=== PATIENT | female | born 1955 | race Caucasian/White ===

== ENCOUNTER → 2020-07-30 14:29 | Outpatient (CLI) | payer BC, SELFPAY ==
[2020-07-30 16:16] LABS: Add Manual Diff / Slide Review NO; Basophils Absolute Auto 100 /uL (0-100); Basophils Percent Auto 1.3 % (0-2); Eosinophils Absolute Auto 100 /uL (0-450); Eosinophils Percent Auto 2.6 % (2-4); Hematocrit 42.1 % (36-46); Hemoglobin 13.6 g/dL (12.0-16.0); Lymphocytes Absolute Auto 1100 /uL (1100-4500); Lymphocytes Percent Auto 20.8 % (25-40); Mean Corpuscular HGB Conc 32.4 % (30-36); Mean Corpuscular Hemoglobin 29.7 PG (26-34); Mean Corpuscular Volume 91.6 fL (80-100); Monocytes Absolute Auto 400 /uL (0-900); Monocytes Percent Auto 7.8 % (3-14); Neutrophils Absolute Auto 3500 /uL (1500-7000); Neutrophils Percent Auto 67.5 % (50-75); Platelet Count 161 X10^3/uL (150-400); Red Cell Distribution Width 12.9 % (11.6-14.8); White Blood Cell Count 5.2 X10^3/uL (4.5-11.0)
[2020-07-30 16:39] LABS: Hemoglobin A1C% w Est Avg Glu 5.7 % (4.0-6.0)
[2020-07-30 16:40] LABS: BUN Creatinine Ratio 42.9 (6-22); Blood Urea Nitrogen 21 mg/dL (7-17); Carbon Dioxide 34 mmol/L (22-32); Chloride 101 mmol/L (98-107); Estimated Glomerular Filt Rate > 60.0 mL/min (>60); Glucose 130 mg/dL (80-110); HEMOLYSIS < 15 (0-50); Potassium 3.7 mmol/L (3.4-5.1); Sodium 139 mmol/L (137-145)
== END ==
PROVIDERS: PCP Physician Assistant; Referring Provider Orthopaedic Surgery Adult Reconstructive Orthopaedic Surgery; Visit Provider Orthopaedic Surgery Adult Reconstructive Orthopaedic Surgery
DX: Z01.818 Encounter for other preprocedural examination (principal); Z01.812 Encounter for preprocedural laboratory examination; R73.9 Hyperglycemia, unspecified
CPT/HCPCS: 36415; 80048; 83036; 85025; 93005

== ENCOUNTER → 2020-09-14 11:10 | Outpatient (CLI) | payer BC, SELFPAY ==
[2020-09-14 13:19] LABS: COVID19 -Nasal RAPID Negative (Negative)
== END ==
PROVIDERS: PCP Physician Assistant; Visit Provider Physician Assistant
DX: Z20.822 Contact with and (suspected) exposure to COVID-19 (principal)
CPT/HCPCS: 87635

== ENCOUNTER 2020-09-16 07:29 | Day surgery (SDC) | payer BC, SELFPAY ==
[2020-09-16] VITALS (24 sets, daily range): BP systolic 86–132; BP diastolic 4–84; PULSE 58–140; RESP 8–18; TEMP 35.7–36.8; O2SAT 91–99; BMI 27.4
--- NOTE | 2020-09-16 | DI.RAD.S_ITS ---
PROCEDURE: XR HIP LT 1V INDICATIONS: LEFT TOTAL HIP TECHNIQUE: Single intraoperative fluoroscopic view(s) of the hip acquired. COMPARISON: None. FINDINGS: Intraoperative fluoroscopic image of left hip shows left total hip arthroplasty with anatomic left hip alignment. IMPRESSION: Fluoroscopic guidance was provided intraoperatively for left hip arthroplasty. Dictated by: Seymour Rubio M.D. on 09/16/2020 at 11:19 Approved by: Seymour Rubio M.D. on 09/16/2020 at 11:19
--- NOTE | 2020-09-16 08:09 | DI.RAD.S_ITS ---
PROCEDURE: XR PELVIS 1-2V INDICATIONS: post op films TECHNIQUE: Single view(s) of the pelvis acquired. COMPARISON: None. FINDINGS: Bones: No acute fracture. Expected postoperative alignment of left hip arthroplasty. Hardware appears intact. Moderate right hip joint degeneration. Soft tissues: Visualized bowel gas pattern is normal. No suspicious soft tissue calcifications. IMPRESSION: Expected postoperative alignment Dictated by: Silver Salazar M.D. on 09/16/2020 at 13:11 Approved by: Silver Salazar M.D. on 09/16/2020 at 13:12
[2020-09-16] MEDS: ACETAMINOPHEN 325 MG TABLET 975 MG PO (08:23)
[2020-09-16] MEDS: PREGABALIN 75 MG CAPSULE PO (08:24)
[2020-09-16] MEDS: MELOXICAM 7.5 MG TABLET 15 MG PO (08:24)
--- NOTE | 2020-09-16 08:26 | PM.PREOP ---
Pre-operative Note COVID-19 COVID-19 status: Negative Result date/Date tested (Pos, Neg/Pending): 09/14/20 Interval Note History & Physical reviewed/Exam performed by Physician: Yes Changes to H&P: No H&P completed within 30 days and has changed as indicated here:: Plan for left anterior NADIRA
[2020-09-16] MEDS: LACTATED RINGERS 1,000 ML 42 ML IV ×3 (08:41→13:12)
[2020-09-16] MEDS: CEFAZOLIN 2 GM/100 ML FROZ.PIGGY IV ×2 (08:59→17:27)
[2020-09-16] MEDS: TRANEXAMIC ACID 1,000 MG VIAL 1000 MG INJ ×2 (09:10→09:45)
--- NOTE | 2020-09-16 09:36 | SUR.OPER ---
Supine on padded [place] table with bilateral legs secured in padded positioning boots and suspended in positioning spars, operative leg in traction per surgeon. Head on one pillow. Arm on non-operative side secured on padded armboard <90 degrees abduction. Arm on operative side padded and resting across chest then secured with tape over sheet. Padded perineal post in place per surgeon.
[2020-09-16] MEDS: ROPIVACAINE 0.5% PF 5 MG/ML 20ML VIAL 60 ML INJ (09:46)
[2020-09-16] MEDS: MORPHINE 4 MG/ML INJ INJ (09:47)
[2020-09-16] MEDS: KETOROLAC 30 MG/ML VIAL IV (09:47)
--- NOTE | 2020-09-16 11:11 | PM.OP.1 ---
Operative Date/Time/Diagnoses Date of procedure: 09/16/20 Time of procedure: 11:14 Pre-op diagnosis: left hip OA Post-op diagnosis: same Procedure & Clinicians Procedure: Left anterior NADIRA Same procedure as scheduled: Yes Indications: Left hip osteoarthritis resistant to further conservative measures Surgeon: Gary Jiang Anesthesia Type: General and Spinal Operative Notes Findings: Left hip osteoarthritis with [id number] articulation of the weight-bearing surface of femoral head Closure Type: primary Prosthetic devices, grafts, tissues, transplants, or devices: [employer] R3 50 mm cup 50 mm x 32 mm neutral offset liner 35 mm screw 25 mm screw Size 6 standard anthology Biolox 30 2+4 head Estimated Blood Loss (mL): 200 Procedure in detail: Patient was met in the preoperative holding area where the site and side of surgery were marked by . Informed consent had been reviewed in clinic was also reviewed the preoperative holding area and all last minute questions were answered. Patient was then brought back in the operating room where she received a spinal anesthetic. She was then transferred on the [place] table and induced under general anesthesia. Both feet were placed in well-padded [place] table boots and the left lower extremity was then prepped and draped in normal sterile fashion. A surgical time-out was performed verifying the site and side of surgery as well as the name of the patient. A 7 cm long incision based approximately 2 cm distal and 2 cm lateral to the ASIS aiming towards the fibular head was made in the skin using 10. Blade. Electrocautery was used to dissect down to the level of the tensor fascia. A 10. Blade was then used to incise the tensor fascia Allis clamp was placed on the medial leaflet. The tensor muscle itself was then reflected laterally and a Cobra was placed over the superior aspect of the femoral neck. A Meyerding retractor was then placed over the lateral aspect of the rectus femoris retracted medially to give us good exposure to the ascending branches of the femoral circumflex vessels this was then coagulated using electrocautery and a 2nd retractor was then placed under the inferior aspect of the femoral neck. A bent Hohmann retractor was then placed over the superior lip of the acetabulum to give us good exposure to the capsule. Inverted T-shaped capsulotomy was then performed the superior and inferior leaflets were then tagged with FiberWire suture. These were then partially released and the retractors then placed intracapsularly. A reciprocating saw was then used to make our femoral neck cut a corkscrew was then used to remove the femoral head. Retractors were then placed to give us good acetabular exposure. The labrum was then removed with a [place] blade and the pulvinar was removed using electrocautery and suction. I began reaming with a 45 mm Reamer and then up sized to 46 mm Reamer and then up by 2s to 48 mm Reamer. Then selected a 49 mm Reamer which had good the resistance and a 50 mm cup was then selected. On initial placement the cup did not fully seat this was then removed and a 49 mm Reamer was then used again to touch ream the rim of the cup. The 50 mm cup was then placed a 2nd time under fluoroscopic guidance. Two screws were then placed. The neutral offset liner was then placed in the cup and malleted flush in making sure the tabs were well seated. Next I turned my attention to the femoral side a femoral elevator hook was then used to place underneath the posterior aspect of the femur the femur was then externally rotated to 120? of external rotation extent of floor and adducted. A bent Hohmann retractors then placed over the superior leaflet of the capsulotomy and a capsular release was performed and then a single prong large retractors placed over the superior aspect of the greater trochanter. A Dumont retractor was then placed over the calcar to give us good exposure to the femoral neck cut. A canal finer was then used followed by a large curette followed by chili pepper broach to lateralize followed by a 1. Broach upsizing by once into a size 6. Then calcar planed off the size 6 broach this had good fit and fill. I then placed a standard neck with a 32+ 0 head and reduced the hip the hip was stable to maximal external rotation as well as external rotation to 90? and extension to the floor. X-ray was brought in which showed that we were a couple mm short on this side as compared to the non operative side we had good fit and fill with the stem. The hip was then dislocated the trial components removed and a size 6 standard anthology was then placed a 30 2+4 head was then selected and malleted onto the trunnion. The hip was then reduced a final time and had the same stability as prior. Betadine solution was then placed into the wound as final x-rays were obtained the Betadine solution was then lavaged with copious normal saline periarticular injection was then performed with local anesthetic. Capsulotomy was then repaired using a running Ethibond suture and the tag FiberWire sutures were then removed. The tensor fascia was then closed using number 0 Vicryl in a running locking fashion followed by 2 Vicryl in the subcutaneous layer followed by 3-0 Stratafix Dermabond on the skin layer and an Aquacel dressing. Complications: none Post-operative Condition: stable Disposition: PACU Plan for aftercare: 24 hours post-op abx, ASA 81mg BID for DVT prophylaixs, WBAT LLE
[2020-09-16] MEDS: fentaNYL 100 MCG/2 ML INJ IV (11:41)
--- NOTE | 2020-09-16 13:13 | SUR.PHASEI ---
Patient remains hypotensive at 87/51 with a MAP of 61; Asymptomatic. Skin is pink, warm and dry; HR is NSR at 60. Resting with eyes closed in no distress. Pre-op BP was 132/84.
--- NOTE | 2020-09-16 13:21 | SUR.PHASEI ---
Called receiving nurse and notified of BP of 88/50 with MAP of 62. Notified Anesthesiologist Dr Anderson. Awaiting any new orders.
--- NOTE | 2020-09-16 13:26 | SUR.PHASEI ---
Per nolan Dove to transfer patient to floor.
[2020-09-16] MEDS: IBUPROFEN 400 MG TABLET PO ×3 (14:08→21:03)
[2020-09-16] MEDS: LACTATED RINGERS 1,000 ML 125 ML IV (14:09)
[2020-09-16 14:37] LABS: Add Manual Diff / Slide Review NO; Basophils Absolute Auto 0 /uL (0-100); Basophils Percent Auto 0.2 % (0-2); Eosinophils Absolute Auto 0 /uL (0-450); Eosinophils Percent Auto 0.1 % (2-4); Hematocrit 37.4 % (36-46); Hemoglobin 12.4 g/dL (12.0-16.0); Lymphocytes Absolute Auto 400 /uL (1100-4500); Lymphocytes Percent Auto 3.6 % (25-40); Mean Corpuscular HGB Conc 33.2 % (30-36); Mean Corpuscular Hemoglobin 30.3 PG (26-34); Mean Corpuscular Volume 91.3 fL (80-100); Monocytes Absolute Auto 200 /uL (0-900); Monocytes Percent Auto 1.4 % (3-14); Neutrophils Absolute Auto 10800 /uL (1500-7000); Neutrophils Percent Auto 94.7 % (50-75); Platelet Count 173 X10^3/uL (150-400); Red Blood Cell Count 4.09 X10^6/uL (4.0-5.2); Red Cell Distribution Width 12.9 % (11.6-14.8); White Blood Cell Count 11.4 X10^3/uL (4.5-11.0)
--- NOTE | 2020-09-16 14:39 | PC.NURSE ---
Addendum entered by Lidia Horn R.N. 09/16/20 14:42: at bedside. PT evaluated, 1 person assist. General diet. Room air, 97%. SDCs on bilateral legs. Call light within reach, up in chair. Original Note: On unit at 1333. BP 94/43. Denies pain. LR going at 125 into right wrist.
[2020-09-16] MEDS: ACETAMINOPHEN 325 MG TABLET 650 MG PO ×2 (14:56→21:03)
--- NOTE | 2020-09-16 15:15 | PT.IIE ---
Current Diagnoses Unilateral primary osteoarthritis, left hip (09/16/20) Surgery Performed Operation Date: 09/16/20 08:45 Actual Procedures p Total Hip Arthroplasty/Anterior Approach(Left) - Gary Jiang MD Surgical History (Last Updated 09/09/20 @ 11:41 by Katie Menjivar, RN) History of tonsillectomy History of tonsillectomy Medical History (Last Updated 09/09/20 @ 11:41 by Katie Menjivar, RN) Arthritis Former smoker Primary osteoarthritis of left hip Physical Therapy Inpatient Evaluation/Re-Eval M1 PT/OT-IP Prior Functional Status Start: 09/16/20 14:13 Freq: NEEDED Status: Active Protocol: Document 09/16/20 14:48 HH (Rec: 09/16/20 15:14 [id number]) Medical Review Prior Functional Status Medical History Reviewed Yes Diet/Fluid Consistency Regular Communication no deficits noted. able to make needs known Mobility and Gait independent for all mobility without AD. increased pain with stair climbing and long walks Activities of Daily Living and IADL's independent for all ADLs and IADLs without AD. Social History Household Members spouse Living Arrangements House Number of Floors (Floors) One Floor Number of Stairs To Enter/Railing? 2 LORI to garage entrance without AD 1 LORI to front entrance. Home Environment Standard Height Toilet,High Toilet,Walk in Shower Home Equipment Front Wheel Walker,Straight Cane,Tub Transfer Bench,Hand Held Shower,Grab Bars In Shower Employment Status Unknown Additional Social History Comment pt lives with her and he will be available to assist as needed. pt has adjustable bed at home. M2 PT-IP Current Condition Start: 09/16/20 14:13 Freq: NEEDED Status: Active Protocol: Document 09/16/20 14:48 HH (Rec: 09/16/20 15:14 [id number]) Physical Therapy Current Condition Current Condition Evaluation Date 09/16/20 Treatment Diagnosis L NADIRA with anterior approach, difficulty in walking Onset Date 09/16/20 Precautions Anterior Hip Precautions No Hip Extension,No Hip External Rotation Weight Bearing Status Weight Bearing Status Weight Bear as Tolerated M3 PT-IP Subjective Start: 09/16/20 14:13 Freq: NEEDED Status: Active Protocol: Document 09/16/20 14:48 HH (Rec: 09/16/20 15:14 [id number]) Subjective Physical Therapy Visit Type Type Initial Evaluation Visit Start Time 14:17 Visit Stop Time 14:44 Total Visit Minutes 27 Notes at bedside Number of CALENDER ROLL OPERATOR Visits 0 Physical Therapy Visit Comments Patient Comments Im groggy but i can move Patient Goals to be able to return home with Therapy Pain Assessment Pain Present Pain Present Denied Pain M4 PT-IP Mobility and Gait Start: 09/16/20 14:13 Freq: NEEDED Status: Active Protocol: Document 09/16/20 14:48 (Rec: 09/16/20 15:14 [id number]) PT-Bed Mobility Assessment Supine to Sit Supine to Sit Standby Assistance,Head of Bed Elevated Scooting Scooting to Edge of Bed Standby Assistance PT-Transfer Assessment Sit to and From Stand Sit to and from Stand Contact Guard Assistance,1 Person Assistance,Use of Upper Extremities Equipment Transfer Assistive Device Gait Belt,Front Wheeled Walker Orthotic/Prosthetic Devices or Brace: No Transfers Transfer Destination Bed,Chair Transfer Technique Stand Step Pivot Transfer Ability Level of Assist Contact Guard Assistance,1 Person Assistance,Use of Upper Extremities Comments Mobility Comments pt was in bed eating lunch. at bedside. BP at 114/ 55 Pt said she is groggy since surgery but agreed to mobilize with PT. Pt has adjustable bed at home so she completed supine to sit with SBA from elevated HOB position . She was able to pivot her LLE to L EOB slowly. She scooted to EOB with SBA as well followed by standing up from bed by pushing off from bed CGA. She then practiced lateral weight shift at bedside. She then walked around the foot of bed with FWW CGA but needed cues for step to pattern by leading LLE first. Pt took 1 min to complete and able to transfer herself with stand step pivot safely to chair with good descend. Pt then sat in chair comfortably but felt very groggy. BP at 104/52 and call light placed within reach Gait Assessment Gait Gait Assistance Required: Contact Guard Assist,1 Person Assist Distance (Feet) 12 Able to Maintain Weight Bearing Status Yes During Gait Assistive Devices Assistive Device Gait Belt,Front Wheeled Walker Orthotic/Prosthetic Devices or Brace: No Gait Deviations General Gait Pattern Antalgic,Decreased Stride Length,Decreased Feet Clearance,Step-to Gait Factors Limiting Gait Function Factors Limiting Gait Function Decreased Activity Tolerance, Decreased Strength,Limited Range of Motion,Pain,Poor Balance Comments Gait Comments see mobility comments. Stair Climbing Assessment Comments Stair Climbing Comments did not assess PT-Balance Assessment Sitting Balance and Reactions Static Sitting Balance Ability Normal Dynamic Sitting Balance Ability Normal Standing Balance and Reactions Static Standing Balance Ability Normal Dynamic Standing Balance Ability Good Device Used FWW M5 PT-IP Objective Assessments Start: 09/16/20 14:13 Freq: NEEDED Status: Active Protocol: Document 09/16/20 14:48 (Rec: 09/16/20 15:14 [id number] Orientation Orientation/Cognition Level of Alertness Alert Orientation Name,Age,Birthday,Month,Date, Year,Day of Week,Place, Situation Language Function Ability No Deficits Noted Safety Awareness Understands Safety Issues Memory Description No Deficits Noted Gross Range of Motion Upper Extremity ROM Assessment Within Functional Limits Lower Extremity ROM Assessment Left Impaired Strength Upper Extremity Strength Assessment Within Functional Limits Lower Extremity Strength Assessment Left Impaired Hip 3+/5 Coordination Assessment Gross Coordination Gross Coordination WNL Sensation Assessment Sensation Gross Sensation Left LE Impaired Sensation Description Numbness,Tingling Comments Sensation Comments numbness at lateral thigh Muscle Tone Muscle Tone WNL Yes M6 PT-IP Treatment Start: 09/16/20 14:13 Freq: NEEDED Status: Active Protocol: Document 09/16/20 14:48 (Rec: 09/16/20 15:14 [id number]) Physical Therapy Treatment Exercises Exercises Ankle Pumps,Gluteal Sets Education Education Provided Precautions,Weight Bearing Status,Post-Op Packet,Safety M7 PT-IP Assessment and Plan Start: 09/16/20 14:13 Freq: NEEDED Status: Active Protocol: Document 09/16/20 14:48 (Rec: 09/16/20 15:14 [id number]) PT Summary Assessment and Plan Potential Rehabilitation Potential Excellent Status of Condition at Evaluation Stable Summary Impairments Pain,ROM,Strength,Balance,Bed Mobility,Transfers,Gait, Activity Tolerance Assessment Summary Pt is a 64 yo female s/p POD0 L NADIRA with anterior approach. Pt was completely IND without using AD for all mobility / ADLs/IADLs. She is doing very well at this session who is able to walk within the room with FWW CGA but she is still very groggy at this point. Expect pt to be DC home with assistance tomorrow. Goals Bed Mobility Goal Standby Assistance Transfer Goal Standby Assistance,Front Wheeled Walker Gait Goal Standby Assistance,Front Wheel Walker Gait Distance 200 Other Goals 2 LORI/ 1 LORI with 1 FWW Days to Meet Goals 3 Frequency of Treatment Frequency Of Treatment Twice a Day Treatment Plan Physical Therapy Treatment Plan Bed Mobility Training,Transfer Training,Gait Training, Therapeutic Exercise,Balance Retraining,Post Op Education, Discharge Planning,Hot or Cold Pack,Neuromuscular Re-ed Other Recommendations and Next Treatment review precautions Focus mobility as estevan stair climbing Precautions Anterior Hip Precautions No Hip Extension,No Hip External Rotation Recommendations To Nursing Amount of Assist Needed 1 Person Assist Discharge Recommendations PT Discharge Recommendations Home with Assistance, Outpatient PT Transportation Needs at Discharge Private Vehicle
--- NOTE | 2020-09-16 15:15 | PT.IIE ---
Current Diagnoses Unilateral primary osteoarthritis, left hip (09/16/20) Surgery Performed Operation Date: 09/16/20 08:45 Actual Procedures p Total Hip Arthroplasty/Anterior Approach(Left) - Gary Jiang MD Surgical History (Last Updated 09/09/20 @ 11:41 by Katie Menjivar, RN) History of tonsillectomy History of tonsillectomy Medical History (Last Updated 09/09/20 @ 11:41 by Katie Menjivar, RN) Arthritis Former smoker Primary osteoarthritis of left hip Physical Therapy Inpatient Evaluation/Re-Eval M1 PT/OT-IP Prior Functional Status Start: 09/16/20 14:13 Freq: NEEDED Status: Active Protocol: Document 09/16/20 14:48 HH (Rec: 09/16/20 15:14 [id number]) Medical Review Prior Functional Status Medical History Reviewed Yes Diet/Fluid Consistency Regular Communication no deficits noted. able to make needs known Mobility and Gait independent for all mobility without AD. increased pain with stair climbing and long walks Activities of Daily Living and IADL's independent for all ADLs and IADLs without AD. Social History Household Members spouse Living Arrangements House Number of Floors (Floors) One Floor Number of Stairs To Enter/Railing? 2 LORI to garage entrance without AD 1 LORI to front entrance. Home Environment Standard Height Toilet,High Toilet,Walk in Shower Home Equipment Front Wheel Walker,Straight Cane,Tub Transfer Bench,Hand Held Shower,Grab Bars In Shower Employment Status Unknown Additional Social History Comment pt lives with her and he will be available to assist as needed. pt has adjustable bed at home. M2 PT-IP Current Condition Start: 09/16/20 14:13 Freq: NEEDED Status: Active Protocol: Document 09/16/20 14:48 HH (Rec: 09/16/20 15:14 [id number]) Physical Therapy Current Condition Current Condition Evaluation Date 09/16/20 Treatment Diagnosis L NADIRA with anterior approach, difficulty in walking Onset Date 09/16/20 Precautions Anterior Hip Precautions No Hip Extension,No Hip External Rotation Weight Bearing Status Weight Bearing Status Weight Bear as Tolerated M3 PT-IP Subjective Start: 09/16/20 14:13 Freq: NEEDED Status: Active Protocol: Document 09/16/20 14:48 HH (Rec: 09/16/20 15:14 [id number]) Subjective Physical Therapy Visit Type Type Initial Evaluation Visit Start Time 14:17 Visit Stop Time 14:44 Total Visit Minutes 27 Notes at bedside Number of WATER PUMP OPERATOR Visits 0 Physical Therapy Visit Comments Patient Comments Im groggy but i can move Patient Goals to be able to return home with Therapy Pain Assessment Pain Present Pain Present Denied Pain M4 PT-IP Mobility and Gait Start: 09/16/20 14:13 Freq: NEEDED Status: Active Protocol: Document 09/16/20 14:48 (Rec: 09/16/20 15:14 [id number]) PT-Bed Mobility Assessment Supine to Sit Supine to Sit Standby Assistance,Head of Bed Elevated Scooting Scooting to Edge of Bed Standby Assistance PT-Transfer Assessment Sit to and From Stand Sit to and from Stand Contact Guard Assistance,1 Person Assistance,Use of Upper Extremities Equipment Transfer Assistive Device Gait Belt,Front Wheeled Walker Orthotic/Prosthetic Devices or Brace: No Transfers Transfer Destination Bed,Chair Transfer Technique Stand Step Pivot Transfer Ability Level of Assist Contact Guard Assistance,1 Person Assistance,Use of Upper Extremities Comments Mobility Comments pt was in bed eating lunch. at bedside. BP at 114/ 55 Pt said she is groggy since surgery but agreed to mobilize with PT. Pt has adjustable bed at home so she completed supine to sit with SBA from elevated HOB position . She was able to pivot her LLE to L EOB slowly. She scooted to EOB with SBA as well followed by standing up from bed by pushing off from bed CGA. She then practiced lateral weight shift at bedside. She then walked around the foot of bed with FWW CGA but needed cues for step to pattern by leading LLE first. Pt took 1 min to complete and able to transfer herself with stand step pivot safely to chair with good descend. Pt then sat in chair comfortably but felt very groggy. BP at 104/52 and call light placed within reach Gait Assessment Gait Gait Assistance Required: Contact Guard Assist,1 Person Assist Distance (Feet) 12 Able to Maintain Weight Bearing Status Yes During Gait Assistive Devices Assistive Device Gait Belt,Front Wheeled Walker Orthotic/Prosthetic Devices or Brace: No Gait Deviations General Gait Pattern Antalgic,Decreased Stride Length,Decreased Feet Clearance,Step-to Gait Factors Limiting Gait Function Factors Limiting Gait Function Decreased Activity Tolerance, Decreased Strength,Limited Range of Motion,Pain,Poor Balance Comments Gait Comments see mobility comments. Stair Climbing Assessment Comments Stair Climbing Comments did not assess PT-Balance Assessment Sitting Balance and Reactions Static Sitting Balance Ability Normal Dynamic Sitting Balance Ability Normal Standing Balance and Reactions Static Standing Balance Ability Normal Dynamic Standing Balance Ability Good Device Used FWW M5 PT-IP Objective Assessments Start: 09/16/20 14:13 Freq: NEEDED Status: Active Protocol: Document 09/16/20 14:48 (Rec: 09/16/20 15:14 [id number] Orientation Orientation/Cognition Level of Alertness Alert Orientation Name,Age,Birthday,Month,Date, Year,Day of Week,Place, Situation Language Function Ability No Deficits Noted Safety Awareness Understands Safety Issues Memory Description No Deficits Noted Gross Range of Motion Upper Extremity ROM Assessment Within Functional Limits Lower Extremity ROM Assessment Left Impaired Strength Upper Extremity Strength Assessment Within Functional Limits Lower Extremity Strength Assessment Left Impaired Hip 3+/5 Coordination Assessment Gross Coordination Gross Coordination WNL Sensation Assessment Sensation Gross Sensation Left LE Impaired Sensation Description Numbness,Tingling Comments Sensation Comments numbness at lateral thigh Muscle Tone Muscle Tone WNL Yes M6 PT-IP Treatment Start: 09/16/20 14:13 Freq: NEEDED Status: Active Protocol: Document 09/16/20 14:48 (Rec: 09/16/20 15:14 [id number]) Physical Therapy Treatment Exercises Exercises Ankle Pumps,Gluteal Sets Education Education Provided Precautions,Weight Bearing Status,Post-Op Packet,Safety M7 PT-IP Assessment and Plan Start: 09/16/20 14:13 Freq: NEEDED Status: Active Protocol: Document 09/16/20 14:48 (Rec: 09/16/20 15:14 [id number]) PT Summary Assessment and Plan Potential Rehabilitation Potential Excellent Status of Condition at Evaluation Stable Summary Impairments Pain,ROM,Strength,Balance,Bed Mobility,Transfers,Gait, Activity Tolerance Assessment Summary Pt is a 64 yo female s/p POD0 L NADIRA with anterior approach. Pt was completely IND without using AD for all mobility / ADLs/IADLs. She is doing very well at this session who is able to walk within the room with FWW CGA but she is still very groggy at this point. Expect pt to be DC home with assistance tomorrow. Goals Bed Mobility Goal Standby Assistance Transfer Goal Standby Assistance,Front Wheeled Walker Gait Goal Standby Assistance,Front Wheel Walker Gait Distance 200 Other Goals 2 LORI/ 1 LORI with 1 FWW Days to Meet Goals 3 Frequency of Treatment Frequency Of Treatment Twice a Day Treatment Plan Physical Therapy Treatment Plan Bed Mobility Training,Transfer Training,Gait Training, Therapeutic Exercise,Balance Retraining,Post Op Education, Discharge Planning,Hot or Cold Pack,Neuromuscular Re-ed Other Recommendations and Next Treatment review precautions Focus mobility as estevan stair climbing Precautions Anterior Hip Precautions No Hip Extension,No Hip External Rotation Recommendations To Nursing Amount of Assist Needed 1 Person Assist Discharge Recommendations PT Discharge Recommendations Home with Assistance, Outpatient PT Transportation Needs at Discharge Private Vehicle
[2020-09-16] MEDS: ASPIRIN EC 81 MG TABLET PO (21:03)
[2020-09-16] MEDS: DOCUSATE 100 MG CAPSULE PO (21:03)
[2020-09-17] MEDS: LACTATED RINGERS 1,000 ML 125 ML IV (00:17)
[2020-09-17 00:40] VITALS: BP 90/48; PULSE 57; RESP 18; TEMP 36.7; O2SAT 97
[2020-09-17] MEDS: CEFAZOLIN 2 GM/100 ML FROZ.PIGGY IV (00:56)
[2020-09-17] MEDS: IBUPROFEN 400 MG TABLET PO ×3 (01:00→09:07)
[2020-09-17 04:10] VITALS: BP 105/58; PULSE 56; RESP 18; TEMP 36.6; O2SAT 98
[2020-09-17 06:03] LABS: Hematocrit 29.8 % (36-46)
[2020-09-17 07:34] VITALS: BP 108/68; PULSE 55; RESP 18; TEMP 36.7; O2SAT 100
[2020-09-17] MEDS: ASPIRIN EC 81 MG TABLET PO (09:06)
[2020-09-17] MEDS: DOCUSATE 100 MG CAPSULE PO (09:06)
[2020-09-17] MEDS: ACETAMINOPHEN 325 MG TABLET 650 MG PO (09:07)
--- NOTE | 2020-09-17 09:17 | CM.DANOTE ---
DCP: Case received, EMR reviewed and met with patient. Introduced self and role. Was able to obtain information from patient regarding her baseline activity status prior to having surgery, as well as her current living situation. DCP assessment completed with information currently available. Patient came to the hospital via private vehicle for a surgical procedure. She had left total hip arthroplasty. She has history of osteoarthritis of her left hip. Met with patient in her room. She was sitting up in her chair, alert and oriented, pleasant. She is independent at her baseline, and has not needed to use any DME supplies prior to surgery. She is currently driving, and resides in [facility] with her spouse, Art. Confirmed that her spouse will be able to assist her when she goes home. P: DCP to continue to follow. She has outpatient P.T. set up as well. She should be able to go home when medically stable and cleared by P.T. Petra De Leon RN/Cutting Department Supervisor
--- NOTE | 2020-09-17 10:43 | PT.IPTN ---
Current Diagnoses Unilateral primary osteoarthritis, left hip (09/16/20) Surgery Performed Operation Date: 09/16/20 08:45 Actual Procedures p Total Hip Arthroplasty/Anterior Approach(Left) - Gary Jiang MD Physical Therapy Treatment Note M2 PT-IP Current Condition Start: 09/16/20 14:13 Freq: NEEDED Status: Discharge Protocol: Document 09/16/20 14:48 HH (Rec: 09/16/20 15:14 HH [id number]) Physical Therapy Current Condition Current Condition Evaluation Date 09/16/20 Treatment Diagnosis L NADIRA with anterior approach, difficulty in walking Onset Date 09/16/20 Precautions Anterior Hip Precautions No Hip Extension,No Hip External Rotation Weight Bearing Status Weight Bearing Status Weight Bear as Tolerated M3 PT-IP Subjective Start: 09/16/20 14:13 Freq: NEEDED Status: Discharge Protocol: Document 09/17/20 10:04 CLB (Rec: 09/17/20 13:11 CLB [id number]) Subjective Physical Therapy Visit Type Type Treatment Note Visit Start Time 10:04 Visit Stop Time 10:43 Total Visit Minutes 39 Number of BLOWER INSTALLER Visits 1 Physical Therapy Visit Comments Patient Comments I'm feeling much better today Patient Goals to be able to return home with Therapy Pain Assessment Pain When Pain Assessed During Mobility Pain Present Pain Present Pain Reported Location Left Hip Intensity 1 Scale Used Numeric (0 - 10) Description Tightness Pain Management Techniques Timing of Activity with Medications M4 PT-IP Mobility and Gait Start: 09/16/20 14:13 Freq: NEEDED Status: Discharge Protocol: Document 09/17/20 10:04 CLB (Rec: 09/17/20 13:11 CLB [id number]) PT-Bed Mobility Assessment Supine to Sit Supine to Sit Standby Assistance,Head of Bed Elevated Sit to Supine Sit to Supine Standby Assistance,Head of Bed Elevated Scooting Scooting to Edge of Bed Standby Assistance PT-Transfer Assessment Sit to and From Stand Sit to and from Stand Standby Assistance,1 Person Assistance,Use of Upper Extremities Equipment Transfer Assistive Device Gait Belt,Front Wheeled Walker Orthotic/Prosthetic Devices or Brace: No Transfers Transfer Destination Bed,Chair,Toilet Transfer Technique Stand Step Pivot Transfer Ability Level of Assist Standby Assistance,1 Person Assistance,Use of Upper Extremities Comments Mobility Comments Pt in chair standing SBA and ambulated to BR. Pt able to sit on toilet SBA and perform own pericare. Pt stood from toilet with use of wall rail SBA. Pt ambulated to sink washing hand requiring SBA for standing balance. Pt ambulated to therapy stairs climbing one platform step w/ FWW/SBA. Pt then ambulated back to room and required SBA for [id number]. Pt performed ther ex in supine. Pt then required SBA to EOB and transferred to chair SBA. Left pt in chair with all needs within reach, RN informed of pt mobility progress. Gait Assessment Gait Gait Assistance Required: Standby Assistance,1 Person Assist Distance (Feet) 150 Able to Maintain Weight Bearing Status Yes During Gait Assistive Devices Assistive Device Gait Belt,Front Wheeled Walker Orthotic/Prosthetic Devices or Brace: No Gait Deviations General Gait Pattern Antalgic,Decreased Stride Length,Decreased Feet Clearance,Step-to Gait Factors Limiting Gait Function Factors Limiting Gait Function Decreased Activity Tolerance, Decreased Strength,Limited Range of Motion,Pain,Poor Balance Comments Gait Comments see mobility comments. Stair Climbing Assessment Evaluation Level of Assist On Stairs Standby Assistance Devices Stair Climbing Assistive Devices Front Wheel Walker Technique/Endurance Stair Climbing Direction Ascend and Descend Stair Climbing Technique Step to Step Number of Steps Climbed 1 Stair Climbing Set # Repetitions (reps) 1 Comments Stair Climbing Comments see mobility comments PT-Balance Assessment Sitting Balance and Reactions Static Sitting Balance Ability Normal Dynamic Sitting Balance Ability Normal Standing Balance and Reactions Static Standing Balance Ability Normal Dynamic Standing Balance Ability Good Device Used FWW M5 PT-IP Objective Assessments Start: 09/16/20 14:13 Freq: NEEDED Status: Discharge Protocol: Document 09/16/20 14:48 (Rec: 09/16/20 15:14 [id number]) Orientation Orientation/Cognition Level of Alertness Alert Orientation Name,Age,Birthday,Month,Date, Year,Day of Week,Place, Situation Language Function Ability No Deficits Noted Safety Awareness Understands Safety Issues Memory Description No Deficits Noted Gross Range of Motion Upper Extremity ROM Assessment Within Functional Limits Lower Extremity ROM Assessment Left Impaired Strength Upper Extremity Strength Assessment Within Functional Limits Lower Extremity Strength Assessment Left Impaired Hip 3+/5 Coordination Assessment Gross Coordination Gross Coordination WNL Sensation Assessment Sensation Gross Sensation Left LE Impaired Sensation Description Numbness,Tingling Comments Sensation Comments numbness at lateral thigh Muscle Tone Muscle Tone WNL Yes M6 PT-IP Treatment Start: 09/16/20 14:13 Freq: NEEDED Status: Discharge Protocol: Document 09/17/20 10:04 CLB (Rec: 09/17/20 13:11 CLB [id number]) Physical Therapy Treatment Exercises Exercises Ankle Pumps,Gluteal Sets,Quad Sets,Heel Slides Education Education Provided Precautions,Weight Bearing Status,Safety M7 PT-IP Assessment and Plan Start: 09/16/20 14:13 Freq: NEEDED Status: Discharge Protocol: Document 09/17/20 10:04 CLB (Rec: 09/17/20 13:11 CLB [id number]) PT Summary Assessment and Plan Potential Rehabilitation Potential Excellent Status of Condition at Evaluation Stable Summary Impairments Pain,ROM,Strength,Balance,Bed Mobility,Transfers,Gait, Activity Tolerance Assessment Summary Pt requiring SBA for all mobility. Pt able to increase gait distance to ~150ft w/FWW/ SBA and good follow through regarding Anterior hip precautions. Pt safe with stair climbing. Pt able to perform all ther ex and has OP PT appt scheduled for 09/23. Goals Bed Mobility Goal Standby Assistance Transfer Goal Standby Assistance,Front Wheeled Walker Gait Goal Standby Assistance,Front Wheel Walker Gait Distance 200 Other Goals 2 LORI/ 1 LORI with 1 FWW Days to Meet Goals 3 Frequency of Treatment Frequency Of Treatment Twice a Day Treatment Plan Physical Therapy Treatment Plan Bed Mobility Training,Transfer Training,Gait Training, Therapeutic Exercise,Balance Retraining,Post Op Education, Discharge Planning,Hot or Cold Pack,Neuromuscular Re-ed Precautions Anterior Hip Precautions No Hip Extension,No Hip External Rotation Recommendations To Nursing Amount of Assist Needed 1 Person Assist Discharge Recommendations PT Discharge Recommendations Home with Assistance, Outpatient PT Transportation Needs at Discharge Private Vehicle
--- NOTE | 2020-09-17 11:12 | PM.DS.1 ---
History of Present Illness History of Present Illness Date Patient Seen: 09/17/20 Time Patient Seen: 11:12 Chief complaint: LEFT NADIRA *OPB* Narrative: Please refer to previously documented HPI and chart. Discharge Providers Provider Discharge Date: 09/17/20 Primary care physician: Florencia Graham PA-C Consults: 09/16/20 08:09 Consult to Anesthesiology Routine Comment: Consulting Provider: Anesthesiologist Reason for consultation: Regional block for post operative pain control 09/16/20 13:38 Consult to Discharge Planning Routine Comment: Consult to Physical Therapy Evaluate & Treat Comment: Physician Instructions: post op NADIRA protocol Consult to Respiratory Therapy Evaluate & Treat Comment: Physician Instructions: Evaluate and treat Discharge provider: Ruben Hernandez PA-C Summary Hospital Course Discharge Diagnosis: Left hip osteoarthritis Status post left total hip arthroplasty via anterior approach Hospital Course: 64-year-old female with the above-listed diagnoses was appropriately consented for the above listed procedure. She presented there are undergoing said procedure without difficulty or complication. She was admitted overnight for observation including but not limited to pain management physical therapy and occupational therapy. On postoperative day 1 evaluation the patient was determined to be in good condition and stable for discharge. The patient's wound was clean, dry and intact. The patient was able to void with pain controlled utilizing oral analgesics. She denied fever, chills, chest pain, shortness of breath and nausea. The patient verbalized understanding postoperative total hip replacement care instructions and agreed for plan to follow-up in 2 weeks for re-evaluation or sooner as needed. Status at Discharge Cognitive/behavioral status at discharge: oriented Functional status at discharge: uses cane/walker Overall status at discharge: patient is progressing back to baseline Time Spent with Patient Time spent: Less than 30 minutes Exam Vital Signs (past 8 hours): - 09/17/20 04:10 09/17/20 07:34 Temperature 97.9 F 98.1 F Pulse Rate 56 L 55 L Respiratory Rate 18 18 Blood Pressure 105/58 L 108/68 Pulse Oximetry 98 100 Oxygen Delivery Method Room Air Oxygen Flow Rate 0 Narrative Exam Narrative: Patient observed laying in bed comfortably in no apparent distress. She is alert oriented x3. Her wound was clean dry and intact. Her casts were soft, compressible and nontender bilaterally. Her left lower extremity is functional with grossly normal strength in dorsi and plantar flexion. The extremity is neurovascularly intact with grossly normal sensation and 2+ pulses. Objective Labs Result Diagrams: 09/17/20 05:30 Labs: Laboratory Results - last 24 hr 09/16/20 09/17/20 14:26 05:30 WBC 11.4 H RBC 4.09 Hgb 12.4 10.0 L Hct 37.4 29.8 L MCV 91.3 MCH 30.3 MCHC 33.2 RDW 12.9 Plt Count 173 Neut % (Auto) 94.7 H Lymph % (Auto) 3.6 L Anderson % (Auto) 1.4 L Eos % (Auto) 0.1 L Baso % (Auto) 0.2 Neut # (Auto) 44044 H Lymph # (Auto) 400 L Anderson # (Auto) 200 Eos # (Auto) 0 Baso # (Auto) 0 PFSH Medical History (Updated 09/09/20 @ 11:41 by Katie Menjivar, RN) Arthritis Former smoker Primary osteoarthritis of left hip Surgical History (Updated 09/09/20 @ 11:41 by Katie Menjivar, RN) History of tonsillectomy History of tonsillectomy Family History (Updated 03/15/15 @ 00:00 by Conversion Provider) Father Leukemia Heart disease Hypertension High cholesterol Grandmother Diabetes mellitus Hypertension Social History household members: spouse Smoking Status: Never smoker alcohol intake: current Discharge Assessment & Plan Assessment and Plan Assessment: Left hip osteoarthritis Postoperative day 1 Status post left total hip arthroplasty via anterior approach in stable condition Plan of Treatment: 1. Discharge home today in stable condition. 2. Postoperative total hip arthroplasty care protocols via anterior approach apply. 3. Follow up in clinic in 2 weeks for re-evaluation or sooner as needed. Discharge Plan Discharge Plan Patient Disposition: Home Discharge orders & Medications Discharge Orders: Discharge (Order); Ordered 09/17/20 Ordered By: Ruben Hernandez Prescriptions: New aspirin 81 mg Tablet,Delayed Release (Dr/Ec) 81 mg PO BID Qty: 60 RF: 0 hydrocodone-acetaminophen 5-325 mg tablet 1 tab PO Q6H PRN (Reason: pain) Qty: 40 RF: 0 Continued acetaminophen [Tylenol Extra Strength] 500 mg Tablet 500 mg PO Q6H PRN (Reason: Pain) RF: 0 ibuprofen 200 mg Tablet 600 mg PO Q6H PRN (Reason: Pain) RF: 0 calcium carbonate-vitamin D3 [Calcium 500 + D] 500 mg(1,250mg) -400 unit Tablet,Chewable 2 tab PO DAILY RF: 0 Yilbrqlbowk-Cgzkj-AZE Complex 708-018-68-0.5 mg Tablet 1 tab PO DAILY RF: 0 Follow up/Referrals: Florencia Graham PA-C [Primary Care Provider] - Gary Jiang MD [Physician] - (Follow-up in 2 weeks) Diet/Activity/Treatments Diet: Diet as Tolerated Activity: Weight bear as tolerated on bilateral lower extremities with fall precautions. Skin/Wound/Dressing Care Report to your healthcare provider any signs of infection, such as:: chills, fever, night sweats, increased pain, unusual drainage and unusual redness Dressing: Call if dressing is soiled or saturated. Visit Report/Discharge Packet Instructions: DI for Hip Replacement Stand Alone Forms: Surgery Discharge Discharge Data Primary Care Provider: Florencia Graham Attending Provider: Gary Jiang Quality MIPS - Admit Advanced Care Plan / Current Medications Measures: #47 ? Advanced Care Plan Clinician documentation instruction: document at admission. [] I confirmed that the patient's Advance Care Plan is present, code status is documented, or surrogate decision maker is listed in the patient?s medical record. [SATISFIES MIPS PERFORMANCE] If Yes, Stop Here [] The patient?s Advance Care plan is not present because: (select) [MIPS PERFORMANCE EXCEPTION/EXCLUSION] [] I confirmed today that the patient does not wish or was not able to name a surrogate decision maker or provide an Advance Care Plan. [] Hospice care is currently being provided or has been provided this calendar year [] I did NOT confirm today the presence of an Advance Care Plan or surrogate decision maker documented within the patient's medical record. [DOES NOT SATISFY MIPS PERFORMANCE] #130 - Documentation of Current Medications in the Medical Record Clinician documentation instruction: use macro the first time you see a patient. [] I have utilized all available immediate resources to obtain, update, or review the patient?s current medications. [SATISFIES MIPS PERFORMANCE] If Yes, Stop Here [] The patient is not eligible for medication reconciliation; the patient is in an emergent medical situation where delaying treatment would jeopardize the patient?s health. [MIPS PERFORMANCE EXCEPTION/EXCLUSION] [] I did NOT confirm, update or review the patient's current list of medications today. [DOES NOT SATISFY MIPS PERFORMANCE] MIPS - CL Central Venous Catheter Placement Measure: #76 ? Prevention of Central Venous Catheter (CVC) ? Related Bloodstream Infection Clinician documentation instruction: use macro every time you place a central line. [] All elements of Maximal Sterile Barrier Technique, including hand hygiene, skin prep, and sterile ultrasound technique (if used) were followed. [SATISFIES MIPS PERFORMANCE] If Yes, Stop Here [] If ?No?, the medical reason all elements were NOT used for medical reason [] (ex. emergent condition). [] Maximal Sterile Barrier Technique was not followed, no reason provided [DOES NOT SATISFY MIPS PERFORMANCE] MIPS - DC Heart Failure Measures: #5 - Heart Failure (HF): Angiotensin-Converting Enzyme (SHANTELLE) Inhibitor or Angiotensin Receptor Arianna (ARB) Therapy for Left Ventricular Systolic Dysfunction (LVSD) and #8 - Heart Failure (HF): Beta-Arianna Therapy for Left Ventricular Systolic Dysfunction (LVSD) Clinician documentation instruction: use macro at every CHF discharge. [] The patient has current or prior documentation of left ventricular ejection fraction (LVEF) less than 40%, or moderate or severely depressed left ventricular systolic function. Answer both: [SATISFIES MIPS PERFORMANCE] [] The patient was prescribed or already taking an Angiotensin-Converting Enzyme (SHANTELLE) Inhibitor, or Angiotensin Receptor Arianna (ARB). [] The patient was prescribed or already taking a beta-arianna. If Yes to Both, Stop Here [] Patient not prescribed/taking: [MIPS PERFORMANCE EXCEPTION/EXCLUSION] [] SHANTELLE or ARB for medical/patient/system reason(s) including [] (ex. allergy, intolerance, contraindication) [] Beta-arianna for medical/patient/system reason(s) including [] (ex. allergy, intolerance, contraindication) [] Patient not prescribed/taking: [DOES NOT SATISFY MIPS PERFORMANCE] [] SHANTELLE or ARB, no reason given [] Beta-arianna, no reason given
--- NOTE | 2020-09-17 11:47 | PC.NURSE ---
Pt is dressed and ready for discharge home with Spouse who is present in the room. Went over d/c instructions with Pt and Spouse-discussed d/c meds, time of last dose, reviewed stroke education, s/s of infection, showering, keeping dsg intact, drink plenty of fluids to prevent constipation or dehydration, and no driving while on narcotics. Pt IV has been removed. Pt denies further questions and was taken out via w/c by ELECTRONIC DATA PROCESSING AUDITOR to POV with Spouse and all belonigngs.
== END 2020-09-17 11:49 | disposition home or self-care (01) ==
LOC: OR 07:30 → AC 07:31
PROVIDERS: PCP Physician Assistant; Referring Provider Orthopaedic Surgery Adult Reconstructive Orthopaedic Surgery; Visit Provider Orthopaedic Surgery Adult Reconstructive Orthopaedic Surgery
PROC: (CPT 27130; principal; 2020-09-16 08:45)
DX: M16.12 Unilateral primary osteoarthritis, left hip (principal)
CPT/HCPCS: 27130; 36415; 72170; 73501; 76000; 85014; 85018; 85025; 97110; 97116; 97161; 97530; C1776; J0690; J1100; J1885; J2250; J2270; J2274; J2405; J2704; J3010

== ENCOUNTER → 2021-04-07 10:51 | Outpatient (CLI) | payer BC, SELFPAY ==
[2020-09-16 07:34] VITALS: BMI 27.4
[2021-04-07 11:38] LABS: Add Manual Diff / Slide Review NO; Basophils Absolute Auto 100 /uL (0-100); Basophils Percent Auto 1.3 % (0-2); Eosinophils Absolute Auto 200 /uL (0-450); Eosinophils Percent Auto 5.4 % (2-4); Hematocrit 42.2 % (36-46); Hemoglobin 13.8 g/dL (12.0-16.0); Lymphocytes Absolute Auto 1200 /uL (1100-4500); Lymphocytes Percent Auto 26.4 % (25-40); Mean Corpuscular HGB Conc 32.6 % (30-36); Mean Corpuscular Hemoglobin 29.7 PG (26-34); Monocytes Absolute Auto 400 /uL (0-900); Monocytes Percent Auto 8.3 % (3-14); Neutrophils Absolute Auto 2600 /uL (1500-7000); Neutrophils Percent Auto 58.6 % (50-75); Platelet Count 176 X10^3/uL (150-400); Red Blood Cell Count 4.64 X10^6/uL (4.0-5.2); Red Cell Distribution Width 14.4 % (11.6-14.8); White Blood Cell Count 4.4 X10^3/uL (4.5-11.0)
[2021-04-07 11:55] LABS: Hemoglobin A1C% w Est Avg Glu 5.5 % (4.0-6.0)
[2021-04-07 12:06] LABS: BUN Creatinine Ratio 27.3 (6-22); Blood Urea Nitrogen 12 mg/dL (7-17); Calcium 9.6 mg/dL (8.4-10.2); Carbon Dioxide 32 mmol/L (22-32); Chloride 102 mmol/L (98-107); Estimated Glomerular Filt Rate > 60.0 mL/min (>60); Glucose 85 mg/dL (80-110); HEMOLYSIS < 15 (0-50); Potassium 4.1 mmol/L (3.4-5.1); Sodium 140 mmol/L (137-145)
== END ==
PROVIDERS: PCP Physician Assistant; Referring Provider Orthopaedic Surgery; Visit Provider Orthopaedic Surgery
DX: Z01.818 Encounter for other preprocedural examination (principal); M25.511 Pain in right shoulder; R73.9 Hyperglycemia, unspecified; Z01.812 Encounter for preprocedural laboratory examination
CPT/HCPCS: 36415; 80048; 83036; 85025; 93005

== ENCOUNTER → 2021-04-30 09:01 | Outpatient (CLI) | payer BC, SELFPAY ==
[2020-09-16 07:34] VITALS: BMI 27.4
[2021-04-30 10:39] LABS: COVID19 -Nasal RAPID Negative (Negative)
== END ==
PROVIDERS: PCP Physician Assistant; Visit Provider Physician Assistant
DX: Z20.822 Contact with and (suspected) exposure to COVID-19 (principal)
CPT/HCPCS: 87635

== ENCOUNTER → 2021-04-30 09:07 | Outpatient (CLI) | payer BC, MEDICARE, SELFPAY ==
[2020-09-16 07:34] VITALS: BMI 27.4
== END ==
PROVIDERS: PCP Physician Assistant; Referring Provider Orthopaedic Surgery; Visit Provider Orthopaedic Surgery
DX: Z01.818 Encounter for other preprocedural examination (principal); Z20.822 Contact with and (suspected) exposure to COVID-19
CPT/HCPCS: 87635; 93005

== ENCOUNTER → 2021-07-06 11:23 | Outpatient (CLI) | payer BC, MEDICARE, SELFPAY ==
[2020-09-16 07:34] VITALS: BMI 27.4
[2021-07-06 12:34] LABS: Add Manual Diff / Slide Review NO; Basophils Absolute Auto 100 /uL (0-100); Basophils Percent Auto 1.1 % (0-2); Eosinophils Absolute Auto 200 /uL (0-450); Eosinophils Percent Auto 3.4 % (2-4); Hematocrit 41.1 % (36-46); Hemoglobin 13.9 g/dL (12.0-16.0); Lymphocytes Absolute Auto 1100 /uL (1100-4500); Lymphocytes Percent Auto 18.6 % (25-40); Mean Corpuscular Hemoglobin 30.3 PG (26-34); Mean Corpuscular Volume 89.3 fL (80-100); Monocytes Absolute Auto 300 /uL (0-900); Monocytes Percent Auto 5.5 % (3-14); Neutrophils Absolute Auto 4400 /uL (1500-7000); Neutrophils Percent Auto 71.4 % (50-75); Platelet Count 181 X10^3/uL (150-400); Red Cell Distribution Width 13.4 % (11.6-14.8); White Blood Cell Count 6.1 X10^3/uL (4.5-11.0)
[2021-07-06 12:44] LABS: Hemoglobin A1C% w Est Avg Glu 5.6 % (4.0-6.0)
[2021-07-06 13:00] LABS: BUN Creatinine Ratio 23.1 (6-22); Blood Urea Nitrogen 12 mg/dL (7-17); Calcium 9.4 mg/dL (8.4-10.2); Carbon Dioxide 31 mmol/L (22-32); Chloride 104 mmol/L (98-107); Estimated Glomerular Filt Rate > 60.0 mL/min (>60); Glucose 103 mg/dL (80-110); HEMOLYSIS < 15 (0-50); Potassium 3.7 mmol/L (3.4-5.1); Sodium 141 mmol/L (137-145)
== END ==
PROVIDERS: PCP Physician Assistant; Referring Provider Orthopaedic Surgery; Visit Provider Orthopaedic Surgery
DX: Z01.812 Encounter for preprocedural laboratory examination (principal); R73.9 Hyperglycemia, unspecified
CPT/HCPCS: 36415; 80048; 83036; 85025

== ENCOUNTER → 2021-08-20 09:09 | Outpatient (CLI) | payer BC, SELFPAY ==
[2021-07-23 11:51] VITALS: BMI 27.4
[2021-08-20 13:07] LABS: COVID19 -Nasal RAPID Negative (Negative)
== END ==
PROVIDERS: PCP Physician Assistant; Visit Provider Family Medicine Sleep Medicine
DX: Z20.822 Contact with and (suspected) exposure to COVID-19 (principal)
CPT/HCPCS: 87635; C9803

== ENCOUNTER 2021-08-23 06:08 | Day surgery (SDC) | payer BC, SELFPAY ==
[2020-09-16 07:34] VITALS: BMI 27.4
[2021-07-20 09:58] VITALS: BMI 25.2
[2021-07-23 11:51] VITALS: BMI 27.4
[2021-08-23] VITALS (13 sets, daily range): BP systolic 96–135; BP diastolic 48–83; PULSE 59–87; RESP 13–16; TEMP 36.1–37.3; O2SAT 92–99; BMI 25.2
--- NOTE | 2021-08-23 06:40 | DI.RAD.S_ITS ---
PROCEDURE: XR SHOULDER RT MIN 2V INDICATIONS: prosthesis placement TECHNIQUE: 1 views of the shoulder were acquired. COMPARISON: [facility], CT, CT SHOULDER RIGHT WITHOUT CONTRAST, 01/08/2021, 13:16. FINDINGS: Bones: Right partial shoulder arthroplasty is present. Hardware is intact. Postsurgical soft tissue changes are present. Soft tissues: No suspicious soft tissue calcifications. IMPRESSION: Shoulder arthroplasty postsurgical changes as above. Dictated by: Lisa Caba M.D. on 08/23/2021 at 10:16 Approved by: Lisa Caba M.D. on 08/23/2021 at 10:18
[2021-08-23] MEDS: ACETAMINOPHEN 325 MG TABLET 975 MG PO (07:13)
[2021-08-23] MEDS: CELECOXIB 200 MG CAPSULE PO (07:13)
[2021-08-23] MEDS: PREGABALIN 75 MG CAPSULE PO (07:13)
--- NOTE | 2021-08-23 07:33 | P.HP_ITS ---
History of Present Illness History of Present Illness Date Patient Seen: 08/23/21 Time Patient Seen: 07:34 Chief complaint: RT TSA *OPB* Narrative: The patient is a 65-year-old woman with progressively worsening right shoulder pain. Her surgery has been delayed due to restrictions based on the governor's mandate for the COVID pandemic. A full history and physical was completed on July 13, 2021. The patient has had no new medical history either in her hist ory of present illness or medical conditions in the past medical history. Patient History Medical History Anesthesia Arthritis HLD (hyperlipidemia) Primary osteoarthritis of left hip RBBB with left anterior fascicular block Surgical History History of left hip replacement (09/16/20) History of tonsillectomy Family & Social History Family History Father Leukemia Heart disease Hypertension High cholesterol Grandmother Diabetes mellitus Hypertension Social History: household members spouse Prior Living Arrangements House Safety & Behavioral: Feels Safe in Current Yes Environment Been Physically Hurt or No Threatened By a Person Suicidal Ideation Description None Suicide Plan Description No Plan Tobacco & Substance use: Smoking Status Never smoker alcohol intake current alcohol intake frequency a few times a month Substance Use Type does not use Meds Home Medications and Allergies Home Medications Medication Instructions Recorded Confirmed Type acetaminophen 500 mg tablet 500 mg PO Q6H PRN 09/14/20 08/23/21 History (Tylenol Extra Strength) calcium carbonate 500 mg-vitamin 2 tab PO DAILY 09/14/20 08/23/21 History D3 10 mcg (400 unit) chewable tablet (Calcium 500 + D) glucosamine 375 rw-roxlujohi-xqq 1 tab PO DAILY 09/14/20 08/23/21 History no1 500 mg-C 15 mg-mari 0.5 mg tablet (Hpyneblzmrk-Churgaphqvp-CBI Complex) ibuprofen 200 mg tablet 600 mg PO Q6H PRN 09/14/20 08/23/21 History atorvastatin 20 mg tablet 20 mg PO DAILY 07/20/21 08/23/21 History Allergies Allergy/AdvReac Type Severity Reaction Status Date / Time articaine [From Septocaine] Allergy Severe Rash, Verified 08/23/21 06:58 enlarged/bulging vein across forehead, rash on gums epinephrine [From Septocaine] Allergy Severe Rash, Verified 08/23/21 06:58 enlarged/bulging vein across forehead, rash on gums BEES Allergy Intermediate Hives, Uncoded 09/16/20 08:11 Tachy Review of Systems Review of Systems Narrative: Patient is in her normal state of health. Exam Vital Signs (past 8 hours): - 08/23/21 06:53 08/23/21 07:13 Temperature 99.2 F 99.2 F Pulse Rate 66 Respiratory Rate 16 Blood Pressure 135/82 Pulse Oximetry 99 Oxygen Delivery Method Room Air Narrative Exam Narrative: Patient is lying comfortably in her hospital [facility]. Chest is clear to auscultation. Cardiac exam is regular rate and rhythm. Abdomen is soft nontender with normal dominant bowel sounds. Shoulder examination is unchanged from prior visits. Assessment & Plan Assessment & Plan narrative: The patient has severe right shoulder osteoarthritis. As noted in her prior history and physical of the plan is for a right total shoulder replacement. I have reviewed the risks benefits and alternatives with the patient this morning and she has indicated her consent to proceed. Time Spent With Patient Critical Care time: I spent a total of [] minutes of critical care time on this patient's care today; this time is exclusive of procedural time.
--- NOTE | 2021-08-23 07:46 | PM.OP.1 ---
Operative Date/Time/Diagnoses Date of procedure: 08/23/21 Time of procedure: 09:45 Pre-op diagnosis: Right shoulder osteoarthritis Post-op diagnosis: same Procedure & Clinicians Procedure: Right total shoulder replacement Same procedure as scheduled: Yes Indications: The patient has had progressively worsening right shoulder pain with radiographic changes consistent with arthritis. Non-operative management has failed and the patient has requested total shoulder replacement. The risks, benefits and alternatives to surgery were discussed with the patient prior to proceeding. Risks discussed included, but were not limited to, failure to relieve pain, stiffness, infection, nerve damage, deep venous thrombosis, pulmonary embolism, stroke, coma, heart attack, permanent paralysis and , as well as the potential need for eventual revision of the prosthetic. Surgeon: Chalo Sandhu Family Nurse Practitioner: Jagjit Kitchen Click Yes if Unassisted: No Anesthesia Type: General, Peripheral nerve block and Local Operative Notes Findings: Significant right shoulder osteoarthritis with central wear of the glenoid. Closure Type: primary Specimen(s): none sent Prosthetic devices, grafts, tissues, transplants, or devices: Implants used in this procedure manufactured by the [employer] and included a size 2 canal sparing stem, a 46 mm all polyethylene pegged E +glenoid, and a 46 mm x 18 mm neutral humeral head and neck adapter. Applied: implant(s) Estimated Blood Loss (mL): 200 Blood products transfused: none Procedure in detail: The patient was seen in the pre-operative area, where the patient identified the right shoulder as the operative site and this was marked with my initials. The patient received pre-operative antibiotics, underwent an interscalene block, and was taken to the operating room and placed on the operative table in the supine position. After satisfactory anesthesia, a full ?time out? was performed. The patient was repositioned in the ?beach chair? position using a dedicated positioner. All pressure points were well padded, and the knees were slightly bent to prevent tension on the sciatic nerves. The right arm was prepared from the fingers to the base of the neck with ChloroPrep in the usual fashion and draped through sterile drapes. An approximately 12 cm incision was created, starting at the clavicle above the coracoid process and extended towards the deltoid insertion. The deltopectoral interval was used to access the shoulder. The cephalic vein was taken laterally, however despite meticulous dissection it became evident this was going to obstruct access to the glenohumeral joint as it went right across the wound so it was ligated and cauterized. A self retaining retractor was placed. The upper centimeter of the pectoralis major tendon was released. The ?three sisters? were identified and cauterized. The axillary nerve was palpated and protected throughout the case. The biceps was released from its groove and tenodesed over the top of the pectoralis major tendon. The subscapularis was released from the lesser tuberosity with a subscapularis tenotomy and tagged for later repair. The shoulder was dislocated and a cutting guide was used for the proximal humeral osteotomy in 30 degrees of retroversion. Osteophytes were removed. The humeral head was sized and a guide pin placed in the center of the proximal humeral metaphysis. This was over reamed with the step-cut Reamer and with the central drill for the humeral stem. A size 2 stem broach was placed and fit well. A proximal humeral protector was then placed. We then removed the self-retaining retractor and placed retractors to access the glenoid. The subscapularis was released with a ?360 degree release? with care being taken to protect the axillary nerve with the inferior portion of this procedure. The remnant of labrum and biceps stump were removed. The appropriate size reamer was chosen with the glenoid sizer, and the guide pin placed. The glenoid was appropriately reamed. The guide for the peripheral holes was used and the center hole enlarged. The trial glenoid was placed with good stability. We then cemented the final implant into place after irrigating the peg holes and drying them with thrombin-soaked Gelfoam. We returned our attention to the humerus, a trial humeral head was applied and a trial reduction performed. Stability was checked with 50% posterior translation with spontaneous reduction, 45? external rotation at the side with the subscapularis held in the repaired position and 70? of internal rotation in the ?scarecrow position?. This was felt to be satisfactory and the appropriate implants were opened. The humeral prosthetic was impacted into the humerus. The humeral head was applied when the stem was still slightly proud and impacted to both seat the head and fully seat the stem. The joint was relocated one final time. The joint was irrigated and the subscapularis repaired to the remaining lateral stump using [id number] sutures of #2 Ethibond. The top of the subscapularis was closed to the leading edge of the supraspinatus with a figure of 8 #2 Ethibond to close the rotator interval. Anchors were not used to repair the subscapularis due to the patient's small stature and my concern that this would impact the stem. The deltopectoral interval was closed with interrupted 0 Vicryl. The subcutaneous layer was closed with 3-0 Vicryl, and the skin with a running 3-0 V-Lock suture and Dermabond. An Aquacel Ag dressing was applied, the patient?s arm was placed in a sling, and the patient was taken to recovery having tolerated the procedure well. Complications: none Post-operative Condition: stable Disposition: PACU Plan for aftercare: The patient will be maintained on a standard total shoulder replacement protocol with passive range of motion limited to 90 degrees forward flexion, 0 degrees external rotation at the side, 0 degrees abduction and internal rotation to the body. The patient will receive aspirin and sequential compression devices for DVT prophylaxis. The patient will be discharged home when safe for the home environment, likely tomorrow.
--- NOTE | 2021-08-23 08:04 | SUR.PREOP ---
Block start time 0748 . Monitoring initiated and maintained throughout procedure. Oxygen on at 2LNP - and medications given by anesthesiologist. Patient remained stable throughout procedure, no adverse reactions noted. Block end time [0800].
[2021-08-23] MEDS: CEFAZOLIN 2 GM/20 ML SYRINGE IV (08:05)
--- NOTE | 2021-08-23 08:35 | SUR.OPER ---
Beach chair with Schlein shoulder positioner. Lower body on padded OR bed. Head in foam padded head cradle, secured with straps. Non-operative arm secured <90 degrees abduction. Pillow under knees. Safety belt at thigh. Cloth tape over blanket over lower legs.
--- NOTE | 2021-08-23 08:40 | PM.PROC.1 ---
Procedures Date/Time Date of procedure: 08/23/21 Time of procedure: 07:40 General Procedure description: Ultrasound guided interscalene brachial plexus nerve block for post op pain control after right total shoulder arthroplasty by Dr. Sandhu. Risks and benefits of procedure discussed with patient. ASA monitoring applied to patient. O2 given via nasal cannula. 1 mg Versed and 50 mcg fentanyl given for procedural sedation. Skin site was prepped with chlorhexidine and allowed to fully dry. Sterile gloves, mask, hat and probe cover were used to maintain sterility. 2% lidocaine and 30ga needle was used to make a small skin wheal at needle insertion site. Under ultrasound guidance, a 21ga 50mm Pajunk needle was directed into the interscalene groove (middle/anterior scalenes) near the brachial plexus. Patient reported no parasthesias. After negative aspiration, 20 mL 0.5% ropivacaine and 10mg dexamethasone were injected around brachial plexus. Patient tolerated procedure well.
[2021-08-23] MEDS: THROMBIN (RECOMBINANT) 5,000 UNIT VIAL 5000 UNIT TOP (08:44)
[2021-08-23] MEDS: TRANEXAMIC ACID 1,000 MG VIAL 1000 MG INJ ×2 (08:44→09:33)
[2021-08-23] MEDS: BUPIVACAINE 0.5% W/ EPI (PF) 30 ML VIAL INJ (08:45)
[2021-08-23] MEDS: LACTATED RINGERS 1,000 ML 42 ML IV (09:16)
[2021-08-23] MEDS: LACTATED RINGERS 1,000 ML 100 ML IV (11:33)
--- NOTE | 2021-08-23 13:57 | PT.IIE ---
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 Mobility and Gait Independent without assistive device. Pt did briefly use a FWW after anterior hip replacement one year ago but has not needed any AD in >10 months. Activities of Daily Living and IADL's Independent. Social History Household Members spouse Living Arrangements House Number of Floors (Floors) One Floor Number of Stairs To Enter/Railing? 1 LORI at either garage entrance or front door. No rails. 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 M2 PT-IP Current Condition Start: 08/23/21 12:59 Freq: NEEDED Status: Active Protocol: Document 08/23/21 13:57 AW (Rec: 08/23/21 14:29 AW [id number]) Physical Therapy Current Condition Current Condition Evaluation Date 08/23/21 Treatment Diagnosis R TSA; decreased independence with ADL's Onset Date 08/23/21 M3 PT-IP Subjective Start: 08/23/21 12:59 Freq: NEEDED Status: Active Protocol: Document 08/23/21 13:57 AW (Rec: 08/23/21 14:29 AW [id number]) Subjective Physical Therapy Visit Type Type Initial Evaluation Visit Start Time 13:20 Visit Stop Time 13:57 Total Visit Minutes 37 Physical Therapy Visit Comments Patient Comments Pt is willing to participate with PT. Patient Goals Pt may be interested in going home today. Therapy Pain Assessment Pain When Pain Assessed During Mobility Pain Present Pain Present Denied Pain M4 PT-IP Mobility and Gait Start: 08/23/21 12:59 Freq: NEEDED Status: Active Protocol: Document 08/23/21 13:57 AW (Rec: 08/23/21 14:29 AW [id number]) PT-Bed Mobility Assessment Supine to Sit Supine to Sit Standby Assistance,Head of Bed Elevated Sit to Supine Sit to Supine Standby Assistance Scooting Scooting to Edge of Bed Standby Assistance PT-Transfer Assessment Sit to and From Stand Sit to and from Stand Standby Assistance Equipment Transfer Assistive Device None Orthotic/Prosthetic Devices or Brace: Yes Transfers Transfer Destination Bed,Chair,Toilet Transfer Technique Stand Step Pivot Transfer Ability Level of Assist Standby Assistance Comments Mobility Comments Pt was lying in the bed as PT arrived. BP 117/78 HR 76. She needed to use the toilet. She completed supine to sit SBA and walked to the toilet SBA with assist for IV pole management. She voided and managed pericare without assist. She stood SBA without need for grab bar and walked to the sink. Pt washed up and PT provided education in sling fitting using mirror for visual feedback. She ambulated around the unit and completed stair assessment without AD SBA. On return to the room, she transferred to the chair and then back to bed SBA. Pt was left with call light and tray table in reach. Gait Assessment Gait Gait Assistance Required: Standby Assistance Distance (Feet) 220 Assistive Devices Assistive Device None Orthotic/Prosthetic Devices or Brace: Yes Gait Deviations General Gait Pattern Within Normal Limits Comments Gait Comments Pt was able to ambulate without AD SBA and with no LOB . Stair Climbing Assessment Evaluation Level of Assist On Stairs Standby Assistance Technique/Endurance Stair Climbing Direction Ascend and Descend Stair Climbing Technique Step Over Step Number of Steps Climbed 3 Query Text: Stair Climbing Set # Repetitions (reps) 1 Comments Stair Climbing Comments Pt managed stairs with good balance and without need for rails. PT-Balance Assessment Sitting Balance and Reactions Static Sitting Balance Ability Normal Dynamic Sitting Balance Ability Good Standing Balance and Reactions Static Standing Balance Ability Good Dynamic Standing Balance Ability Good M5 PT-IP Objective Assessments Start: 08/23/21 12:59 Freq: NEEDED Status: Active Protocol: Document 08/23/21 13:57 AW (Rec: 08/23/21 14:29 AW [id number]) Orientation Orientation/Cognition Level of Alertness Alert Orientation Name,Day of Week,Place, Situation Language Function Ability No Deficits Noted Safety Awareness Understands Safety Issues Gross Range of Motion Upper Extremity ROM Assessment Right Impaired Lower Extremity ROM Assessment Within Functional Limits Strength Upper Extremity Strength Assessment Right Impaired Lower Extremity Strength Assessment Within Functional Limits Comments Strength Comments LUE grossly 4+/5 to 5/5 Sensation Assessment Sensation Gross Sensation Right UE Impaired Light Touch Impaired Proprioception (Position) Impaired Sensation Description Numbness Comments Sensation Comments Pt affected by interscalene block. She was just beginning to feel some tingling in her fingers during assessment but light touch was impaired in the entire arm. M6 PT-IP Treatment Start: 08/23/21 12:59 Freq: NEEDED Status: Active Protocol: Document 08/23/21 13:57 AW (Rec: 08/23/21 14:29 AW [id number]) Physical Therapy Treatment Exercises Exercises Shoulder Pendulums,Elbow Flexion/Extension,Wrist ROM, Hand ROM Education Education Provided Precautions,Post-Op Packet, Safety Brace Education [place],Patient Other Treatments Other Treatment Performed Educated pt on post-op precautions, fit and function of soft sling. Pt understood and was able to teach back. M7 PT-IP Assessment and Plan Start: 08/23/21 12:59 Freq: NEEDED Status: Active Protocol: Document 08/23/21 13:57 AW (Rec: 08/23/21 14:29 AW [id number]) PT Summary Assessment and Plan Potential Rehabilitation Potential Excellent Status of Condition at Evaluation Evolving Summary Impairments Pain,ROM,Strength Assessment Summary Rosaura is an active 65 yo woman seen for PT evaluation on POD0 following R TSA. She is independent in all regards at baseline. She lives with her spouse who will be available and able to assist at discharge. Pt completed all mobility SBA during assessment and had good understanding of her precautions, sling fit/ function, and ADL management. She will be safe to discharge home with assist once medically stable. She will eventually benefit from outpatient PT to improve her ROM, strength, and function. Goals Bed Mobility Goal Independent Transfer Goal Independent Gait Goal Independent Gait Distance 300 Other Goals - up/down one step without rails IND - pt will independently don/ doff her soft sling Days to Meet Goals 1 Frequency of Treatment Frequency Of Treatment Twice a Day Treatment Plan Physical Therapy Treatment Plan Gait Training,Therapeutic Exercise,Post Op Education, Discharge Planning,Hot or Cold Pack Other Recommendations and Next Treatment review precautions and sling Focus fit Precautions Shoulder Precautions Sling,PROM,Internal Rotation to Body,No External Rotation, No Abduction,Forward Flexion to 90 degrees,Pendulums Recommendations To Nursing Amount of Assist Needed Standby Assistance Discharge Recommendations PT Discharge Recommendations Home with Assistance Transportation Needs at Discharge Private Vehicle
--- NOTE | 2021-08-23 14:56 | PM.DS.1 ---
History of Present Illness History of Present Illness Date Patient Seen: 08/23/21 Time Patient Seen: 14:56 Chief complaint: Shoulder pain Narrative: Right shoulder pain is mild. Denies fever or chills. No nausea or vomiting. Patient's is home to assist her. Discharge Providers Provider Discharge Date: 08/23/21 Primary care physician: Florencia Graham PA-C Consults: 08/23/21 10:33 Consult to Discharge Planning Routine Comment: Consult to Physical Therapy Evaluate & Treat Comment: Physician Instructions: PROM, 90 FF, 0 Abd, 0 ER, IR to body Discharge provider: Jagjit Kitchen PA-C Summary Hospital Course Discharge Diagnosis: Right shoulder osteoarthritis Hospital Course: Procedure: Right total shoulder replacement Same procedure as scheduled: Yes Indications: The patient has had progressively worsening right shoulder pain with radiographic changes consistent with arthritis. Non-operative management has failed and the patient has requested total shoulder replacement. The risks, benefits and alternatives to surgery were discussed with the patient prior to proceeding. Risks discussed included, but were not limited to, failure to relieve pain, stiffness, infection, nerve damage, deep venous thrombosis, pulmonary embolism, stroke, coma, heart attack, permanent paralysis and , as well as the potential need for eventual revision of the prosthetic. Surgeon: Chalo Sandhu Windshield Wiper Repairer: Jagjit Kitchen Click Yes if Unassisted: No Anesthesia Type: General, Peripheral nerve block and Local Operative Notes Findings: Significant right shoulder osteoarthritis with central wear of the glenoid. Closure Type: primary Specimen(s): none sent Prosthetic devices, grafts, tissues, transplants, or devices: Implants used in this procedure manufactured by the [employer] and included a size 2 canal sparing stem, a 46 mm all polyethylene pegged E +glenoid, and a 46 mm x 18 mm neutral humeral head and neck adapter. Applied: implant(s) Estimated Blood Loss (mL): 200 Blood products transfused: none Patient admitted to the hospital for the above-mentioned procedure. Patient consented to the same. Patient taken operating room this morning underwent right total shoulder replacement. Patient back in her room recovering well as in stable condition. Patient worked with physical therapy. Discharge home today in stable condition. Status at Discharge Cognitive/behavioral status at discharge: oriented Exam Vital Signs (past 8 hours): - 08/23/21 07:13 08/23/21 07:34 08/23/21 09:54 Temperature 99.2 F 97.3 F L 97 F L Pulse Rate 70 87 Respiratory Rate 16 13 Blood Pressure 120/83 96/48 L Pulse Oximetry 97 93 08/23/21 10:00 08/23/21 10:05 08/23/21 10:10 Temperature Pulse Rate 80 80 75 Respiratory Rate 15 15 16 Blood Pressure 96/56 L 107/64 108/65 Pulse Oximetry 92 96 96 08/23/21 10:15 08/23/21 10:25 08/23/21 10:30 Temperature 97 F L Pulse Rate 71 69 67 Respiratory Rate 15 15 14 Blood Pressure 107/67 109/65 110/68 Pulse Oximetry 95 97 97 08/23/21 11:15 08/23/21 11:45 08/23/21 12:45 Temperature 97.2 F L 97.2 F L 97.4 F L Pulse Rate 64 59 L 72 Respiratory Rate 16 16 16 Blood Pressure 108/67 103/68 109/69 Pulse Oximetry 98 98 98 Oxygen Delivery Method Room Air Oxygen Flow Rate 0 PFSH Medical History Anesthesia Arthritis HLD (hyperlipidemia) 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 Discharge Plan Discharge Plan Patient Disposition: Home Discharge orders & Medications Discharge Orders: Discharge (Order); Ordered 08/23/21 Ordered By: Jagjit Kitchen Prescriptions: New acetaminophen 325 mg Tablet 650 mg PO TID Qty: 60 0RF aspirin 81 mg Tablet,Delayed Release (Dr/Ec) 81 mg PO BID Qty: 60 0RF hydroxyzine pamoate 25 mg Capsule 25 mg PO Q6HR PRN (Reason: Nausea) Qty: 20 0RF oxycodone 5 mg Tablet 5 mg PO Q3HR PRN (Reason: Pain, Moderate (4-6)) Qty: 45 0RF Continued atorvastatin 20 mg Tablet 20 mg PO DAILY 0RF ibuprofen 200 mg Tablet 600 mg PO Q6H PRN (Reason: Pain) 0RF calcium carbonate-vitamin D3 [Calcium 500 + D] 500 mg(1,250mg) -400 unit Tablet,Chewable 2 tab PO DAILY 0RF Parpvlvxgpk-Kwnws-LMB Complex 417-469-59-0.5 mg Tablet 1 tab PO DAILY 0RF Discontinued acetaminophen [Tylenol Extra Strength] 500 mg Tablet 500 mg PO Q6H PRN (Reason: Pain) 0RF Follow up/Referrals: Florencia Graham PA-C [Primary Care Provider] - Chalo Sandhu MD [Physician] - (2 weeks) Diet/Activity/Treatments Diet: Diet as Tolerated Activity: Per protocol Cold/Heat Therapy: Ice to shoulder as needed Skin/Wound/Dressing Care Report to your healthcare provider any signs of infection, such as:: chills, fever, increased pain, unusual drainage and unusual redness Dressing: Keep dressing clean and dry Visit Report/Discharge Packet Instructions: DI for Shoulder Replacement Stand Alone Forms: Surgery Discharge Discharge Data Primary Care Provider: Florencia Graham Attending Provider: Chalo Sandhu
[2021-08-23] MEDS: ACETAMINOPHEN 325 MG TABLET 650 MG PO (15:58)
== END 2021-08-23 17:30 | disposition home or self-care (01) ==
LOC: OR 06:10 → AC 06:11
PROVIDERS: PCP Physician Assistant; Referring Provider Orthopaedic Surgery; Visit Provider Orthopaedic Surgery
PROC: 0RQJ0ZZ Repair Right Shoulder Joint, Open Approach (ICD-10-PCS; CPT 23472; principal; 2021-08-23 07:45)
DX: M19.011 Primary osteoarthritis, right shoulder (principal); I45.10 Unspecified right bundle-branch block; E78.5 Hyperlipidemia, unspecified
CPT/HCPCS: 23472; 64450; 73030; 97161; 97530; C1776; J0690; J1100; J2250; J2405; J2704; J3010

== ENCOUNTER → 2022-09-27 10:26 | Outpatient (CLI) | payer BC, SELFPAY ==
[2021-08-23 11:08] VITALS: BMI 25.2
[2022-09-27 10:47] LABS: Add Manual Diff / Slide Review NO; Basophils Absolute Auto 100 /uL (0-100); Basophils Percent Auto 1.2 % (0-2); Eosinophils Absolute Auto 200 /uL (0-450); Eosinophils Percent Auto 5.1 % (2-4); Hematocrit 40.3 % (36-46); Hemoglobin 13.7 g/dL (12.0-16.0); Lymphocytes Absolute Auto 1000 /uL (1100-4500); Mean Corpuscular Hemoglobin 30.3 PG (26-34); Mean Corpuscular Volume 89.2 fL (80-100); Monocytes Absolute Auto 300 /uL (0-900); Monocytes Percent Auto 6.4 % (3-14); Neutrophils Absolute Auto 3000 /uL (1500-7000); Neutrophils Percent Auto 65.3 % (50-75); Platelet Count 140 X10^3/uL (150-400); Red Blood Cell Count 4.52 X10^6/uL (4.0-5.2); Red Cell Distribution Width 13.1 % (11.6-14.8); White Blood Cell Count 4.6 X10^3/uL (4.5-11.0)
[2022-09-27 11:02] LABS: BUN Creatinine Ratio 25.9 (6-22); Blood Urea Nitrogen 14 mg/dL (7-17); Carbon Dioxide 31 mmol/L (22-32); Chloride 102 mmol/L (98-107); Estimated Glomerular Filt Rate > 60 mL/min (>60); Glucose 121 mg/dL (80-110); HEMOLYSIS < 15 (0-50); Potassium 4.1 mmol/L (3.4-5.1); Sodium 137 mmol/L (137-145)
[2022-09-28 06:11] LABS: Labcorp Hemoglobin (Hb) A1c 5.6 % (4.8-5.6)
== END ==
PROVIDERS: PCP Physician Assistant; Referring Provider Orthopaedic Surgery; Visit Provider Orthopaedic Surgery
DX: M25.511 Pain in right shoulder (principal); R73.9 Hyperglycemia, unspecified; Z01.812 Encounter for preprocedural laboratory examination
CPT/HCPCS: 36415; 80048; 83036; 85025

== ENCOUNTER 2022-10-19 09:45 | Inpatient (IN) | payer MEDICARE, BC, SELFPAY ==
[2021-08-23 11:08] VITALS: BMI 25.2
[2022-09-30 07:53] VITALS: BMI 24.5
[2022-10-19] VITALS (11 sets, daily range): BP systolic 108–159; BP diastolic 62–87; PULSE 59–81; RESP 10–17; TEMP 35.8–36.6; O2SAT 90–100; BMI 24.5
--- NOTE | 2022-10-19 06:00 | DI.RAD.S_ITS ---
PROCEDURE: XR SHOULDER LT 1V INDICATIONS: postop TECHNIQUE: 1 views of the shoulder were acquired. COMPARISON: [facility], CR, XR FOOT 1 OR 2 VIEWS BILATERAL, 10/18/2022, 16:09. [facility], CT, CT SHOULDER LEFT WITHOUT CONTRAST, 09/07/2022, 7:33. FINDINGS: Left shoulder arthroplasty with expected appearance and laminae. Overlying postsurgical changes is noted in soft tissue. IMPRESSION: Left shoulder arthroplasty. Dictated by: Janes Mooney M.D. on 10/19/2022 at 16:36 Approved by: Janes Mooney M.D. on 10/19/2022 at 16:37
[2022-10-19] MEDS: PREGABALIN 75 MG CAPSULE PO (10:38)
[2022-10-19] MEDS: ACETAMINOPHEN 325 MG TABLET 975 MG PO (10:38)
[2022-10-19] MEDS: CELECOXIB 200 MG CAPSULE PO (10:38)
[2022-10-19 10:46] LABS: COVID19 -Nasal RAPID Negative (Negative)
[2022-10-19] MEDS: MIDAZOLAM 2 MG/2 ML VIAL IV (10:50)
[2022-10-19] MEDS: fentaNYL 100 MCG/2 ML INJ 50 MCG IV (10:50)
[2022-10-19] MEDS: CEFAZOLIN 2 GM/100 ML PREMIX 100 ML IV (11:10)
[2022-10-19] MEDS: TRANEXAMIC ACID 1,000 MG VIAL 1000 MG INJ ×2 (11:10→12:43)
--- NOTE | 2022-10-19 11:38 | SUR.PREOP ---
Block start time [1050] . Monitoring initiated and maintained throughout procedure. Oxygen and medications given per anesthesiologist instructions. Patient remained stable throughout procedure, no adverse reactions noted. Block end time [1105 ].
--- NOTE | 2022-10-19 11:42 | SUR.OPER ---
Beach chair with Soto/Renard shoulder positioner. Lower body on padded OR bed. Head in foam padded head cradle, secured with straps. Non-operative arm secured <90 degrees abduction. Pillow under knees. Safety belt at thigh. Cloth tape over blanket over lower legs.
[2022-10-19] MEDS: BUPIVACAINE 0.5% (PF) 30 ML, EPINEPHrine 0.15 MG INJ (11:47)
[2022-10-19] MEDS: THROMBIN (RECOMBINANT) 5,000 UNIT VIAL 5000 UNIT TOP (11:49)
[2022-10-19] MEDS: LACTATED RINGERS 1,000 ML 42 ML IV (12:05)
--- NOTE | 2022-10-19 12:50 | P.OP_ITS ---
Operative Date/Time/Diagnoses Date of procedure: 10/19/22 Time of procedure: 12:51 Pre-op diagnosis: Left shoulder osteoarthritis Post-op diagnosis: same Procedure & Clinicians Procedure: Left total shoulder replacement Same procedure as scheduled: Yes Indications: The patient has had progressively worsening left shoulder pain with radiographic changes consistent with arthritis. Non-operative management has failed and the patient has requested total shoulder replacement. The risks, benefits and alternatives to surgery were discussed with the patient prior to proceeding. Risks discussed included, but were not limited to, failure to relieve pain, stiffness, infection, nerve damage, deep venous thrombosis, pulmonary embolism, stroke, coma, heart attack, permanent paralysis and , as well as the potential need for eventual revision of the prosthetic. Surgeon: Chalo Sandhu Associate Dean Of Women: Ofelia Hall Yes if Unassisted: No Anesthesia Type: General, Peripheral nerve block and Local Operative Notes Findings: Severe osteoarthritis of the left shoulder joint Closure Type: primary Specimen(s): none sent Prosthetic devices, grafts, tissues, transplants, or devices: Implants used during this procedure were manufactured by the [employer] and included a size 3 canal sparing stem, a 46 mm x 18 mm neutral humeral head and a 46 mm pegged all polyethylene E +glenoid. Applied: implant(s) Estimated Blood Loss (mL): 150 Blood products transfused: none Procedure in detail: The patient was seen in the pre-operative area, where the patient identified the left shoulder as the operative site and this was marked with my initials. The patient received pre-operative antibiotics, underwent an interscalene block, and was taken to the operating room and placed on the operative table in the supine position. After satisfactory anesthesia, a full ?time out? was performed. The patient was repositioned in the ?beach chair? position using a dedicated positioner. All pressure points were well padded, and the knees were slightly bent to prevent tension on the sciatic nerves. The left arm was prepared from the fingers to the base of the neck with ChloroPrep in the usual fashion and draped through sterile drapes. An approximately 10 cm incision was created, starting at the clavicle above the coracoid process and extended towards the deltoid insertion. The deltopectoral interval was used to access the shoulder. The cephalic vein was taken laterally. A self retaining retractor was placed. The upper centimeter of the pectoralis major tendon was released. The ?three sisters? were identified and cauterized. The axillary nerve was palpated and protected throughout the case. The biceps was released from its groove and tenodesed over the top of the pectoralis major tendon. The subscapularis was released from the lesser tuberosity with a subscapularis peel and tagged for later repair. The shoulder was dislocated and a cutting guide was used for the proximal humeral osteotomy in 30 degrees of retroversion. Proximal humerus was sized with a trial humeral head and a guide pin placed in the center of the metaphysis. This was reamed with the collared reamer followed by a broach for the size 2 canal sparing stem. A proximal humeral protector was then placed. We then removed the self-retaining retractor and placed retractors to access the glenoid. The subscapularis was released with a ?360 degree release? with care being taken to protect the axillary nerve with the inferior portion of this procedure. The remnant of labrum and biceps stump were removed. The appropriate size reamer was chosen with the glenoid sizer, and the guide pin placed. The glenoid was appropriately reamed. The guide for the peripheral holes was used and the center hole enlarged. The trial glenoid was placed with good stability. We then cemented the final implant into place after irrigating the peg holes and drying them with thrombin-soaked Gelfoam. We returned our attention to the humerus, a trial humeral head was applied and a trial reduction performed. Stability was checked with external rotation to 45? with the subscapularis held in the repaired position, 50% posterior translation of the humeral head with spontaneous reduction and internal rotation to in excess of 70? in the ?scarecrow position?. This was felt to be satisfactory and the appropriate implants were opened. Four holes were drilled along the humeral osteotomy and #2 Ethibond sutures placed for eventual subscapularis repair. The humeral prosthetic was impacted i nto the humerus. During trial reduction the size 2 broach had somewhat subsided with compression and did not have a strong fit. We therefore upsized to a size 3 stem and added bone graft prior to placing the final stem. The sutures were placed through the anterior ring of the prosthetic to gain additional support for the subscapularis closure. The humeral head was applied when the stem was still slightly proud and impacted to both seat the head and fully seat the stem. The joint was relocated one final time. The joint was irrigated and the subscapularis repaired to the previously placed sutures using Lopez-Chan sutures. The top of the subscapularis was closed to the leading edge of the supraspinatus with a figure of 8 #2 Ethibond to close the rotator interval. The deltopectoral interval was closed with interrupted 0 Vicryl. The subcutaneous layer was closed with 3-0 Vicryl, and the skin with a running 3-0 V-Lock suture and Dermabond. An Aquacel Ag dressing was applied, the patient?s arm was placed in a sling, and the patient was taken to recovery having tolerated the procedure well. The services of a skilled ice cream freezer assistant were necessary during this case to provide exposure, positioning and retraction to protect vital structures. Without the services of Ms. Beck, the surgery could not have been performed in a safe, expedient fashion. Complications: none Post-operative Condition: stable Disposition: PACU Plan for aftercare: The patient will be maintained on a standard total shoulder protocol. She can use her hand in front of her body below shoulder level to lift 1-2 lb. She will be advanced with outpatient physical therapy. She will likely be discharged home tomorrow morning.
--- NOTE | 2022-10-19 13:39 | SUR.PHASEI ---
Patient using IS to 1000. Patient to room 205 with 1 belonging bag and IS
[2022-10-19] MEDS: ACETAMINOPHEN 325 MG TABLET 650 MG PO (14:13)
--- NOTE | 2022-10-19 18:22 | PC.NURSE ---
IV removed. pt is dressed and ready to d/c home with spouse. Went over d/c instructions with pt and spouse-discussed d/c meds, time of last dose, reviewed stroke education, reminded pt no driving while on narcotics, and to drink plenty of fluids to prevent dehydration and constipation. Reviewed s/s of infection and follow up appt. pt denied further questions and was wheeled out via w/c by [employer] to pov with spouse and all her belongings.
== END 2022-10-19 18:25 | disposition home or self-care (01) | DRG 483 ==
PROVIDERS: Admitting Provider Orthopaedic Surgery; PCP Physician Assistant; Referring Provider Physician Assistant; Visit Provider Orthopaedic Surgery
PROC: 0RRK0JZ Replacement of Left Shoulder Joint with Synthetic Substitute, Open Approach (ICD-10-PCS; CPT 23472; principal; 2022-10-19 11:45)
DX: M19.012 Primary osteoarthritis, left shoulder (principal); Z20.822 Contact with and (suspected) exposure to COVID-19
CPT/HCPCS: 64450; 73020; 87635; C1776; C9803; J0171; J0330; J0690; J1100; J2250; J2405; J2704; J3010